=== PATIENT | female | born 1985 | race Two or more races ===

== ENCOUNTER 2019-05-01 19:47 | Emergency (ER) | payer MEDICAID ==
[~2019-05-01] VITALS: Ht 180.3 cm; Wt 102.0 kg
[2019-05-01] MEDS ORDERED: KETOROLAC 15MG/ML VIAL IM ONE (20:45)
[2019-05-02 00:11] VITALS: BP 116/70
== END 2019-05-02 01:02 | disposition home or self-care (01) ==
LOC: ER 19:47
DX: M25.561 Pain in right knee (principal); F12.10 Cannabis abuse, uncomplicated
CPT/HCPCS: 73562; 96372; 99283; J1885; L1830; Z7610